=== PATIENT | female | born 1975 | race Caucasian/White ===

== ENCOUNTER 2016-05-16 17:04 | Emergency (ER) | payer MEDICAID ==
[2016-05-16 19:23] VITALS: BP 99/60; PULSE 89; TEMP 98.2; BMI 33.0
--- NOTE | 2016-05-16 19:23 | EDPRACDOC ---
- General Information Stated Complaint: FLU SX Time Seen by Provider: 05/16/16 19:14 Home Medications: Home Medications Promethazine Dextromethorphan [Phenergan DM] 5 ml PO Q6 PRN #120 ml 05/16/16 - History of Present Illness Onset: YESTERDAY HPI: PT COMPLAINS OF COUGH PROD OF YELLOW PHLEGM, NASAL CONGESTION, SORE THROAT, MYALGIAS, NO VOMITING, USING THERAFLU AT HOME WITHOUT RELIEF, STATES WAS UNABLE TO GO TO WORK THIS MORNING. Current Symptoms: Reports: Cough, Earache, Headache, Nasal Symptoms, Sore Throat , Myalgia Shortness of Breath: None Cough: Reports: Productive, Yellow Rhinorrhea: Reports: Clear Ear Symptoms: Reports: Earache Fever Severity/Quality: Reports: no fever Oral Intake: Normal Urinary Output: Normal Relevant History of: None Associated Signs & Symptoms:: Reports: Cough, Earache, Headache, Nasal Symptoms , Sore Throat, Myalgia ED Past Medical History - History Reviewed Yes Nurses notes reviewed and agree except as marked No Past Medical History: Yes Patient has no past medical history - Social Medical History Smoking Status: Never smoker EDM Review of Systems - Review of Systems Constitutional: negative: Chills, Fever Eyes: negative: Blurred Vision, Double Vision Ears: Pain. negative: Drainage Throat: Pain Nose: Congestion, Discharge Respiratory: Cough. negative: Shortness of Breath, Wheezing Cardiovascular: negative: Chest Pain, Palpitations Gastrointestinal: negative: Diarrhea, Nausea, Pain, Vomiting Genitourinary: negative: Dysuria, Frequency Neurological: Headache. negative: Dizziness, Numbness, Weakness Musculoskeletal: No Symptoms Reported Integumentary: No Symptoms Reported - Physical Exam Constitutional: Alert (Awake), No apparent distress Oriented to: Time, Person, Place Last recorded Vital Signs: Oxygen Pulse Oxygen Saturation O2 Device Oxygen Flow Rate Fraction of Inspired Oxygen ( FIO2) - HEENT Head: Normal ( normocephalic) Eye Exam: Normal (PERRL, EOMI, Sclera white) Oropharynx: Normal (Pharynx:Moist without exudate,Gums-no swelling) Tympanic Membrane: Dull ENT EAC: Normal TMJ: Normal Nose: No Symptoms Reported (septum midline) Neck: Normal (FROM, trachea at midline) - Respiratory/Cardiovascular Respiratory: Normal - CTA (BBS clear to auscultation without adventitious sounds ) Cardiovascular: Normal (RRR without murmur, gallop or rub) - Integumentary Skin: Normal, Warm, Dry Lymphatics: Normal (no adenopathy) - Neurologic Memory Impaired: Normal Motor Function: Normal (Normal tone, Pulses 2+ No cyanosis or edema, FROM) Cranial Nerve: Normal (CN II-X11 intact sensation, strength 5/5) Cerebellar: Normal Mood Description: Normal Perception: Normal - Differential Diagnosis Bronchitis, Influenza A B, Otitis Media, Pneumonia, Sinusitis, URI Decision Time to Discharge: 19:22 - Departure Disposition: Home Condition: Stable Final Diagnosis: Upper respiratory infection Qualifiers: URI type: unspecified URI Qualified Code(s): J06.9 - Acute upper respiratory infection, unspecified Instructions: Upper Respiratory Infection (ED) Education/Counseling Given To: Patient Education/Counseling Given Regarding: Diagnosis, Treatment, Prognosis, Follow Up Referrals: Tarik Barker MD [Primary Care Provider] - One Week Prescriptions: Promethazine Dextromethorphan [Phenergan DM] 5 ml PO Q6 PRN #120 ml PRN Reason: Cough Forms: Excuse Note Additional Instructions: Rest, drink plenty of fluids, use Tylenol every 4 hours and Motrin every 6 hours as needed for pain or fever, return to the ED for any worsening symptoms or concerns.
== END 2016-05-16 19:26 | disposition home or self-care (01) ==
LOC: EDMC 17:04
DX: J06.9 Acute upper respiratory infection, unspecified (principal)
CPT/HCPCS: 99282